=== PATIENT | male | born 1970 | race Caucasian/White ===

== ENCOUNTER 2022-02-12 13:51 | Emergency (ER) | payer OTHER ==
[2022-02-12] MEDS: Ketorolac 30 MG/ML SDV IM STA (14:23)
[2022-02-12] MEDS: Acetaminophen/HYDROcodone 325-5 MG Tab PO STA (14:24)
[2022-02-12] MEDS: Cyclobenzaprine 10 MG Tab PO STA (14:24)
== END 2022-02-12 15:32 | disposition home or self-care (01) ==
LOC: FB.ED 13:51
DX: M51.36 Other intervertebral disc degeneration, lumbar region (principal); Z88.5 Allergy status to narcotic agent; Z88.8 Allergy status to other drugs, medicaments and biological substances; Z79.899 Other long term (current) drug therapy
CPT/HCPCS: 96372; 99283; A9270; J1885; 99282